=== PATIENT | male | born 1995 | race American Indian/Alaskan Native ===

== ENCOUNTER 2022-02-11 23:11 | Emergency (ER) | payer SELFPAY ==
[2022-02-12] MEDS ORDERED: PENICILLIN G BENZATHINE 1.2 MILLION UNIT/2 ML INJ IM SCH (07:00)
[2022-02-12] MEDS ORDERED: DEXAMETHASONE 4 MG TAB PO SCH (07:00)
[2022-02-12] MEDS ORDERED: KETOROLAC 10 MG TAB PO SCH (07:00)
--- NOTE | 2022-02-12 07:23 | Emergency Department Report ---
ED ENT HPI - General Chief complaint: Sore Throat Stated complaint: CONGESTION/THROAT PAIN Time Seen by Provider: 02/12/22 06:38 Source: patient Mode of arrival: Ambulatory Limitations: No Limitations - History of Present Illness Initial comments: 26-year-old black male with no past medical history presents to the emergency department for evaluation of 3-day history of worsening throat pain along with swollen lymph nodes. He states that he has had intermittent fever and headache at home but denies abdominal pain, nausea, and vomiting. He states that he is strep throat every year and it feels the same as it feels when he usually has strep throat. MD complaint: sore throat -: Gradual, days(s) (3) Location: throat Severity scale (0 -10): 10 Quality: burning, aching Consistency: constant Worsens with: swallowing Associated Symptoms: fever, pain with swallowing, sore throat. denies: cough, gum swelling, toothache, tinnitus, hearing loss, discharge from ear, rhinorrhea - Related Data Previous Rx's Medication Instructions Recorded Last Taken Type Nystas/Diphen/Xyl Visc/Mylanta 30 ml MM Q4H PRN #250 ml 02/12/22 Unknown Rx [Magic Mouthwash] methylPREDNISolone [Medrol 4MG 4 mg PO DAILY #1 pack 02/12/22 Unknown Rx DOSEPAK (21 tabs)] Allergies Allergy/AdvReac Type Severity Reaction Status Date / Time No Known Allergies Allergy Unverified 02/12/22 07:06 ED Dental HPI - General Chief complaint: Sore Throat Stated complaint: CONGESTION/THROAT PAIN Time Seen by Provider: 02/12/22 06:38 Source: patient Mode of arrival: Ambulatory Limitations: No Limitations - Related Data Previous Rx's Medication Instructions Recorded Last Taken Type Nystas/Diphen/Xyl Visc/Mylanta 30 ml MM Q4H PRN #250 ml 02/12/22 Unknown Rx [Magic Mouthwash] methylPREDNISolone [Medrol 4MG 4 mg PO DAILY #1 pack 02/12/22 Unknown Rx DOSEPAK (21 tabs)] Allergies Allergy/AdvReac Type Severity Reaction Status Date / Time No Known Allergies Allergy Unverified 02/12/22 07:06 ED Review of Systems ROS: Stated complaint: CONGESTION/THROAT PAIN Other details as noted in HPI Comment: All other systems reviewed and negative Constitutional: fever. denies: chills ENT: throat pain. denies: congestion Respiratory: denies: cough, shortness of breath Cardiovascular: denies: chest pain Gastrointestinal: denies: abdominal pain, nausea, vomiting Musculoskeletal: denies: back pain Neurological: headache ED Past Medical Hx - Medications Home Medications: Home Medications Medication Instructions Recorded Confirmed Last Taken Type Nystas/Diphen/Xyl Visc/Mylanta 30 ml MM Q4H PRN #250 ml 02/12/22 Unknown Rx [Magic Mouthwash] methylPREDNISolone [Medrol 4MG 4 mg PO DAILY #1 pack 02/12/22 Unknown Rx DOSEPAK (21 tabs)] ED Physical Exam - General Limitations: No Limitations General appearance: alert, in no apparent distress - Head Head exam: Present: atraumatic, normocephalic - Expanded ENT Exam Expanded Mouth exam: Present: normal external inspection. Absent: drooling Throat exam: Positive: tonsillar erythema, tonsillomegaly, tonsillar exudate. Negative: R peritonsillar mass, L peritonsillar mass - Neck Neck exam: Present: normal inspection, tenderness, lymphadenopathy (Right anterior cervical) - Respiratory Respiratory exam: Present: normal lung sounds bilaterally. Absent: respiratory distress, wheezes, rales, rhonchi, stridor - Cardiovascular Cardiovascular Exam: Present: regular rate, normal heart sounds - GI/Abdominal GI/Abdominal exam: Present: soft. Absent: distended - Extremities Exam Extremities exam: Present: normal inspection - Back Exam Back exam: Present: normal inspection - Neurological Exam Neurological exam: Present: alert, oriented X3 - Psychiatric Psychiatric exam: Present: normal affect, normal mood - Skin Skin exam: Present: warm, dry, intact, normal color ED Course Vital Signs 02/12/22 02/12/22 00:34 08:15 Temperature 100.6 F H Pulse Rate 74 61 Respiratory 18 18 Rate Blood Pressure 140/85 134/83 O2 Sat by Pulse 98 99 Oximetry ED Medical Decision Making - Medical Decision Making 26-year-old black male with no past medical history presents to the emergency department for evaluation of 3-day history of worsening throat pain along with swollen lymph nodes. He states that he has had intermittent fever and headache at home but denies abdominal pain, nausea, and vomiting. He states that he is strep throat every year and it feels the same as it feels when he usually has strep throat Patient noted to have erythematous, edematous and exudative tonsils with right greater than left. Swollen cervical anterior lymph nodes on the right, fever, and headache. Patient will be treated for strep throat with one-time dose of Bicillin 1,200,000 units along with Decadron. He will be sent home with prescription for Magic mouthwash for pain and Medrol Dosepak. He is advised to take medication as prescribed and follow-up with primary care provider if no improvement or worsening symptoms. Critical care attestation.: If time is entered above; I have spent that time in minutes in the direct care of this critically ill patient, excluding procedure time. ED Disposition Clinical Impression: Exudative pharyngitis Disposition: HOME / SELF CARE / HOMELESS Is pt being admited?: No Does the pt Need Aspirin: No Condition: Stable Instructions: Strep Throat, Adult, Strep Throat, Adult, [id number] Additional Instructions: Take medications as prescribed. Follow-up with primary care provider if no improvement or worsening symptoms. Prescriptions: Nystas/Diphen/Xyl Visc/Mylanta [Magic Mouthwash] 30 ml MM Q4H PRN #250 ml PRN Reason: Sore Throat methylPREDNISolone [Medrol 4MG DOSEPAK (21 tabs)] 4 mg PO DAILY #1 pack Referrals: CATINA MOFFETT MD [Primary Care Provider] - 3-5 Days Forms: Work/School Release Form(ED) Time of Disposition: 07:24
[2022-02-12 08:19] VITALS: BP 134/83
== END 2022-02-12 08:19 | disposition home or self-care (01) ==
LOC: ED 23:11
DX: J02.9 Acute pharyngitis, unspecified (principal); Z79.899 Other long term (current) drug therapy
CPT/HCPCS: 96372; 99282; J0561; J8540